=== PATIENT | male | born 1975 | race American Indian/Alaskan Native ===

== ENCOUNTER 2023-03-21 22:10 | Emergency (ER) | payer OTHER ==
[~2023-03-21] VITALS: Ht 190.5 cm; Wt 90.7 kg
[2023-03-21 22:16] VITALS: BP 157/95
[2023-03-21] MEDS ORDERED: AMOCLA875 PO (23:38)
== END 2023-03-22 00:02 | disposition home or self-care (01) ==
LOC: ER 22:10
DX: K08.89 Other specified disorders of teeth and supporting structures (principal); M27.8 Other specified diseases of jaws
CPT/HCPCS: 96372; 99282-25; A9270; J1885